=== PATIENT | male | born 1975 | race Caucasian/White ===

== ENCOUNTER 2024-08-30 15:50 | Emergency (ER) | payer BC ==
[~2024-08-30] VITALS: Ht 193 cm; Wt 195.3 kg
[~2024-08-30 15:50] MED LIST: ASPIRIN81 MG PO; BENAZEPRIL HCL10 MG PO; BUSPIRONE HCL10 MG PO; TESTOSTERO100 MG/1 M INJ; VENLAFAXINE HCL75 M2 PO
[2024-08-30] MEDS ORDERED: LISINOPRIL10 MG PO (16:00)
[2024-08-30 16:40] VITALS: PULSE 75; RESP 18; TEMP 97.5; O2SAT 98
== END 2024-08-30 16:40 | disposition home or self-care (01) ==
LOC: FSED 15:53
DX: H61.21 Impacted cerumen, right ear (principal); I10 Essential (primary) hypertension; F41.9 Anxiety disorder, unspecified; F32.A Depression, unspecified; E66.01 Morbid (severe) obesity due to excess calories
CPT/HCPCS: 99283

== ENCOUNTER 2025-04-30 11:10 | Emergency (ER) | payer BC ==
[~2025-04-30] VITALS: Ht 193 cm; Wt 193.9 kg
[~2025-04-30 11:10] MED LIST changes: +LISINOPRIL10 MG PO
[2025-04-30 11:20] VITALS: PULSE 113; RESP 24; TEMP 98.2; O2SAT 94
[2025-04-30] MEDS: ONDANSETRON HCL 4 MG ORAL DISINTEGRATING TAB PO ONE (11:58)
[2025-04-30] MEDS ORDERED: PYRIDIUM100 MG PO (12:01)
[2025-04-30] MEDS ORDERED: ONDANSETRON ODT4 MG PO (12:01)
[2025-04-30] MEDS ORDERED: CIPRO500 MG PO (12:01)
[2025-04-30] MEDS ORDERED: CEFPODOXIME PR200 MG PO (20:02)
== END 2025-04-30 12:10 | disposition home or self-care (01) ==
LOC: FSED 11:28
DX: R30.0 Dysuria (principal); N39.0 Urinary tract infection, site not specified; R00.0 Tachycardia, unspecified; E86.0 Dehydration; R11.2 Nausea with vomiting, unspecified; I10 Essential (primary) hypertension; F41.9 Anxiety disorder, unspecified; F32.A Depression, unspecified; E66.01 Morbid (severe) obesity due to excess calories
CPT/HCPCS: 81003; 99284; Q0162